=== PATIENT | female | born 1955 | race Caucasian/White ===

== ENCOUNTER 2024-09-16 17:06 | Inpatient (IN) | payer OTHER ==
[~2024-09-16] VITALS: Ht 152.4 cm; Wt 59.0 kg
[2024-09-16] MEDS ORDERED: RINGERS SOLUTION,LACTATED 1,000 ML IV SCH (17:45)
[2024-09-16] MEDS ORDERED: ACETAMINOPHEN 325 MG TABLET PO PRN (17:45)
[2024-09-16 18:06] LABS: PH,URINE 5.5 (5.0-8.0); URINE APPEARANCE Clear; URINE BILIRRUBIN Negative (NEGATIVE); URINE BLOOD Trace; URINE COLOR Yellow; URINE GLUCOSE Negative (NEGATIVE); URINE LEUKOCYTE Trace; URINE NITRATE Negative; URINE PROTEIN Trace (NEGATIVE)
[2024-09-16 18:08] LABS: HEMATOCRIT 28.2 % (36.0-45.00); HEMOGLOBIN 9.4 g/dL (12.0-15.00); MEAN CELL VOLUME 86.4 fL (80.00-100.00); MEAN CORPUSCULAR HEMOGLOBIN 28.8 pg (27.00-32.0); MEAN CORPUSCULAR HGB CONC 33.3 g/dl (32.0-36.0); PLATELET COUNT 559 K/uL (150-450); RED BLOOD COUNT 3.26 M/uL (4.00-6.00); RED CELL DISTRIBUTION WIDTH 20.8 % (11.5-14.5)
[2024-09-16 18:09] LABS: URINE BACTERIA 7.3 uL (0.0-1933); URINE EPITHELIAL CELLS 9.9 uL (0.0-38.8); URINE WBC 4.7 uL (0.0-23.2)
[2024-09-16 18:18] LABS: URINE CAST 0.29 uL (0.0-1.40); URINE KETONE 40 (NEGATIVE)
[2024-09-16 18:22] LABS: ERYTHROCYTE SEDIMENTATION RATE 66 mm/hr
[2024-09-16] MEDS ORDERED: VITAMIN B COMPLEX/LYSINE 15 ML BLIST.PACK PO SCH (18:26)
[2024-09-16] MEDS ORDERED: LACTOBACILLUS ACIDOPHILUS 1 CAP CAP PO SCH (18:27)
[2024-09-16] MEDS ORDERED: METRONIDAZOLE/SODIUM CHLORIDE 500 MG/100 ML PIGGYBACK IV SCH (18:27)
[2024-09-16 18:28] LABS: INR 1.25; PARTIAL THROMBOPLASTIN TIME 30.2 SECONDS (22.0-34.0); PROTHROMBIN TIME 13.4 SECONDS (9.0-11.5)
[2024-09-16 18:37] LABS: ALBUMIN 2.6 gm/dL (3.4-5.0); BILIRUBIN TOTAL 0.75 mg/dL (0.3-1.2); CALCIUM 9.6 mg/dL (8.5-10.1); CREATININE SERUM 0.43 mg/dL (0.55-1.02); GFR 145.16; MAGNESIUM 2.1 mg/dL (1.8-2.4); PHOSPHOROUS 3.3 mg/dL (2.5-4.9); POTASSIUM 4.33 mEq/L (3.5-5.1); TOTAL PROTEIN 6.6 gm/dL (6.4-8.2)
[2024-09-16 18:57] LABS: C-REACTIVE PROTEIN 26.5 MG/DL (0.00-0.29)
[2024-09-16] MEDS ORDERED: CIPROFLOXACIN IN 5 % DEXTROSE 400 MG/200 ML PIGGYBAG IV SCH (21:00)
[2024-09-16 22:31] VITALS: BP 145/74
[2024-09-17 01:27] VITALS: BP 133/64; O2SAT 96
[2024-09-17 06:04] VITALS: BP 124/57; O2SAT 97
[2024-09-17 08:25] VITALS: BP 115/55; O2SAT 95
[2024-09-17] MEDS ORDERED: MULTIVIT INFUSN,ADULT 4,VIT K 10 ML VIAL IV SCH (12:46)
[2024-09-17 17:52] VITALS: BP 157/67
[2024-09-18 01:54] VITALS: BP 112/60; O2SAT 98
[2024-09-18 05:03] VITALS: BP 125/66; O2SAT 98
[2024-09-18 08:28] VITALS: BP 117/66; O2SAT 95
[2024-09-18] MEDS ORDERED: PANTOPRAZOLE SODIUM 40 MG TABLET.DR PO NR (16:30)
[2024-09-18] MEDS ORDERED: HYOSCYAMINE SULFATE 0.125 MG TAB.SUBL SL SCH (17:00)
[2024-09-18 17:56] VITALS: BP 119/67
[2024-09-19 01:47] VITALS: BP 123/63; O2SAT 98
[2024-09-19 05:41] VITALS: BP 146/73; O2SAT 97
[2024-09-19 07:04] LABS: CALCIUM 9.5 mg/dL (8.5-10.1); CREATININE SERUM 0.39 mg/dL (0.55-1.02); GFR 162.47; POTASSIUM 4.14 mEq/L (3.5-5.1)
[2024-09-19 07:16] LABS: MEAN CELL VOLUME 87.9 fL (80.00-100.00); MEAN CORPUSCULAR HEMOGLOBIN 30.4 pg (27.00-32.0); MEAN CORPUSCULAR HGB CONC 34.6 g/dl (32.0-36.0); RED BLOOD COUNT 2.96 M/uL (4.00-6.00); RED CELL DISTRIBUTION WIDTH 20.8 % (11.5-14.5)
[2024-09-19 07:22] LABS: PLATELET COUNT 456 K/uL (150-450)
[2024-09-19 08:57] VITALS: BP 125/65
[2024-09-19] MEDS ORDERED: PANTOPRAZOLE SODIUM 40 MG TABLET.DR PO SCH (09:00)
[2024-09-19 18:22] VITALS: BP 82/57
[2024-09-20 01:18] VITALS: BP 114/59
[2024-09-20 09:02] VITALS: BP 126/66
[2024-09-20] MEDS ORDERED: PEG3350/SOD SULF,BICARB,CL/KCL 4,000 ML GALLON PO NR (10:45)
[2024-09-20] MEDS ORDERED: BISACODYL 5 MG TABLET.EC PO SCH (16:00)
[2024-09-20 17:00] VITALS: BP 140/70
[2024-09-21 00:50] VITALS: BP 146/72
[2024-09-21 09:03] VITALS: BP 149/70
[2024-09-21] MEDS ORDERED: MIDAZOLAM HCL 2 MG/2 ML VIAL IV ONE (10:00)
[2024-09-21] MEDS ORDERED: DIPHENHYDRAMINE HCL 50 MG/ML VIAL 1ML IV NR (10:00)
[2024-09-21] MEDS ORDERED: fentaNYL CITRATE 50 MCG/ML AMPUL IV PUSH ONE (10:00)
[2024-09-21 18:03] VITALS: BP 147/69
[2024-09-21] MEDS ORDERED: SIMETHICONE 125 MG CAPSULE PO SCH (21:12)
[2024-09-22 01:25] VITALS: BP 152/75
[2024-09-22 08:19] VITALS: BP 152/73
[2024-09-22] MEDS ORDERED: SIMETHICONE125 M1 PO (13:27)
[2024-09-22] MEDS ORDERED: INTESTINEX680 M1 PO (13:27)
[2024-09-22] MEDS ORDERED: PANTOPRAZOLE SO40 MG PO (13:27)
[2024-09-22] MEDS ORDERED: HYOSCYAMINE0.125 M1 SL (13:27)
== END 2024-09-22 13:44 | disposition home or self-care (01) | DRG 386 ==
LOC: MEDI 17:06
PROVIDERS: ADMIT Internal Medicine Hematology & Oncology; ATTEND Internal Medicine Hematology & Oncology
PROC: 0DBP8ZX Excision of Rectum, Via Natural or Artificial Opening Endoscopic, Diagnostic (ICD-10-PCS; principal; 2024-09-16)
PROC: 0DBN8ZX Excision of Sigmoid Colon, Via Natural or Artificial Opening Endoscopic, Diagnostic (ICD-10-PCS; 2024-09-16)
DX: K51.50 Left sided colitis without complications (principal); C90.10 Plasma cell leukemia not having achieved remission; D50.0 Iron deficiency anemia secondary to blood loss (chronic); K52.9 Noninfective gastroenteritis and colitis, unspecified; K64.2 Third degree hemorrhoids
CPT/HCPCS: 240

== ENCOUNTER 2024-10-28 07:25 | Inpatient (IN) | payer OTHER ==
[~2024-10-28] VITALS: Ht 152.4 cm; Wt 56.7 kg
[~2024-10-28 07:25] MED LIST: HYOSCYAMINE0.125 M1 SL; INTESTINEX680 M1 PO; PANTOPRAZOLE SO40 MG PO; SIMETHICONE125 M1 PO
[2024-10-28 08:53] LABS: HEMATOCRIT 24.9 % (36.0-45.00); MEAN CELL VOLUME 85.8 fL (80.00-100.00); MEAN CORPUSCULAR HGB CONC 32.8 g/dl (32.0-36.0); PLATELET COUNT 607 K/uL (150-450); RED CELL DISTRIBUTION WIDTH 21.5 % (11.5-14.5)
[2024-10-28 08:54] LABS: HEMOGLOBIN 8.2 g/dL (12.0-15.00); MEAN CORPUSCULAR HEMOGLOBIN 28.2 pg (27.00-32.0)
[2024-10-28 09:10] VITALS: BP 130/54; O2SAT 96
[2024-10-28 09:17] LABS: INR 1.09; PARTIAL THROMBOPLASTIN TIME 29.4 SECONDS (22.0-34.0); PROTHROMBIN TIME 11.8 SECONDS (9.0-11.5)
[2024-10-28] MEDS ORDERED: ACETAMINOPHEN 325 MG TABLET PO PRN (11:00)
[2024-10-28] MEDS ORDERED: RINGERS SOLUTION,LACTATED 1,000 ML IV SCH (11:00)
[2024-10-28] MEDS ORDERED: FUROsemide 20 MG/2 ML VIAL IV PRN (11:00)
[2024-10-28] MEDS ORDERED: PANTOPRAZOLE SODIUM 40 MG/VIAL VIAL IV PUSH STA (11:01)
[2024-10-28] MEDS ORDERED: OCTREOTIDE ACETATE 100MCG/ML (0.1MG/ML) AMPUL SUBCUTANEO STA (11:01)
[2024-10-28 11:06] LABS: BILIRUBIN TOTAL 1.05 mg/dL (0.3-1.2); CALCIUM 9.1 mg/dL (8.5-10.1); CREATININE SERUM 0.41 mg/dL (0.55-1.02); GFR 153.36; GLOBULINA 3.9 G/DL (2.4-3.5); POTASSIUM 3.69 mEq/L (3.5-5.1); TOTAL PROTEIN 5.9 gm/dL (6.4-8.2)
[2024-10-28] MEDS ORDERED: VITAMIN B COMPLEX 1 EACH PO NR (12:00)
[2024-10-28] MEDS ORDERED: MULTIVIT INFUSN,ADULT 4,VIT K 10 ML VIAL IV NR (12:00)
[2024-10-28 16:00] VITALS: BP 135/63; O2SAT 95
[2024-10-28] MEDS ORDERED: OCTREOTIDE ACETATE 100MCG/ML (0.1MG/ML) AMPUL SUBCUTANEO SCH (17:00)
[2024-10-28] MEDS ORDERED: CLONAZEPAM 1 MG TABLET PO SCH (21:00)
[2024-10-29 02:02] VITALS: BP 136/77; O2SAT 98
[2024-10-29] MEDS ORDERED: PANTOPRAZOLE SODIUM 40 MG/VIAL VIAL IV PUSH SCH (09:00)
[2024-10-29] MEDS ORDERED: MULTIVIT INFUSN,ADULT 4,VIT K 10 ML VIAL IV SCH (09:00)
[2024-10-29] MEDS ORDERED: VITAMIN B COMPLEX 1 EACH PO SCH (09:00)
[2024-10-29 09:26] VITALS: BP 131/65; O2SAT 95
[2024-10-29] MEDS ORDERED: DICYCLOMINE HCL 20 MG TABLET PO SCH (14:11)
[2024-10-29] MEDS ORDERED: SUCRALFATE 1 G TABLET PO SCH (14:12)
[2024-10-29 16:00] VITALS: BP 149/73; O2SAT 95
[2024-10-29 16:20] LABS: BASO % 0.2 % (0.1-1.2); HEMATOCRIT 32.8 % (34.1-44.9); HEMOGLOBIN 10.7 g/dL (11.2-15.7); LYMPH # 1.53 (1.18-3.74); MEAN CORPUSCULAR HEMOGLOBIN 28.5 pg (25.6-32.2); MONO # 0.63 (0.24-0.82); MONO % 9.9 % (4.7-12.5); NEUT # 4.18 (1.56-6.13); NEUT % 65.4 % (34.0-71.1); PLATELET COUNT 468 K/uL (163-369); RED BLOOD COUNT 3.75 M/uL (3.93-5.22)
[2024-10-29] MEDS ORDERED: MESALAMINE 400 MG CAP.DRTAB. PO SCH (17:00)
[2024-10-29] MEDS ORDERED: MESALAMINE 1,000 MG SUPP.RECT RECTAL SCH (21:00)
[2024-10-30 01:13] VITALS: BP 128/79; O2SAT 100
[2024-10-30 09:38] VITALS: BP 126/64; O2SAT 95
[2024-10-30] MEDS ORDERED: ACETAMINOPHEN 325 MG TABLET PO SCH (17:00)
[2024-10-31 00:55] VITALS: BP 134/80; O2SAT 100
[2024-10-31 08:35] VITALS: BP 142/65; O2SAT 97
[2024-10-31 17:25] VITALS: BP 149/65; O2SAT 95
[2024-10-31] MEDS ORDERED: KETOROLAC TROMETHAMINE 30 MG VIAL IV SCH (20:00)
[2024-10-31] MEDS ORDERED: CHOLESTYRAMINE/ASPARTAME LIGHT 4 G/PKT PACKET PO SCH (21:00)
[2024-11-01 00:43] VITALS: BP 131/66; O2SAT 96
[2024-11-01 08:00] VITALS: BP 158/65; O2SAT 96
[2024-11-01] MEDS ORDERED: OCTREOTIDE ACETATE 100MCG/ML (0.1MG/ML) AMPUL SUBCUTANEO SCH (09:00)
[2024-11-01 16:00] VITALS: BP 141/67; O2SAT 97
[2024-11-02 01:39] VITALS: BP 140/68; O2SAT 98
[2024-11-02 07:39] LABS: BASO % 0.7 % (0.1-1.2); EOS # 0.01 (0.04-0.54); EOS % 0.1 % (0.7-7.0); HEMATOCRIT 31.3 % (34.1-44.9); HEMOGLOBIN 9.8 g/dL (11.2-15.7); LYMPH # 1.29 (1.18-3.74); LYMPH % 18.6 % (19.3-53.1); MEAN CORPUSCULAR HEMOGLOBIN 28.6 pg (25.6-32.2); MONO # 0.62 (0.24-0.82); NEUT # 4.91 (1.56-6.13); PLATELET COUNT 373 K/uL (163-369); RED BLOOD COUNT 3.43 M/uL (3.93-5.22); RED CELL DISTRIBUTION WIDTH 19.1 % (11.6-14.4)
[2024-11-02 08:00] VITALS: BP 155/80; O2SAT 95
[2024-11-02 08:19] LABS: ALBUMIN 1.5 gm/dL (3.4-5.0); BILIRUBIN TOTAL 0.72 mg/dL (0.3-1.2); CALCIUM 8.1 mg/dL (8.5-10.1); CREATININE SERUM 0.25 mg/dL (0.55-1.02); GFR 271.43; GLOBULINA 3.5 G/DL (2.4-3.5); POTASSIUM 3.38 mEq/L (3.5-5.1)
[2024-11-02] MEDS ORDERED: POTASSIUM CHLORIDE 20MEQ/100ML H2O PB IV NR (09:15)
[2024-11-02 12:40] LABS: URINE APPEARANCE Clear; URINE BILIRRUBIN Negative (NEGATIVE); URINE BLOOD Negative; URINE COLOR Dark Yellow; URINE GLUCOSE Negative (NEGATIVE); URINE KETONE Trace (NEGATIVE); URINE LEUKOCYTE Negative; URINE NITRATE Negative; URINE PROTEIN Trace (NEGATIVE)
[2024-11-02 12:42] LABS: URINE BACTERIA 331.7 uL (0.0-1933); URINE EPITHELIAL CELLS 53.6 uL (0.0-38.8); URINE RBC 17.8 uL (0.0-20.8)
[2024-11-02 13:19] LABS: URINE CAST 0.29 uL (0.0-1.40)
[2024-11-02 13:20] LABS: URINE CRYSTALS FEW /HPF
[2024-11-02 16:00] VITALS: BP 123/70; O2SAT 96
[2024-11-03 01:21] VITALS: BP 93/57; O2SAT 98
[2024-11-03 09:34] VITALS: BP 108/69; O2SAT 98
[2024-11-03 09:36] VITALS: BP 96/56; O2SAT 88
[2024-11-03 09:53] LABS: BASO % 0.5 % (0.1-1.2); HEMATOCRIT 35.3 % (34.1-44.9); HEMOGLOBIN 10.9 g/dL (11.2-15.7); LYMPH # 0.62 (1.18-3.74); LYMPH % 14.4 % (19.3-53.1); MEAN CORPUSCULAR HEMOGLOBIN 28.2 pg (25.6-32.2); MONO # 0.26 (0.24-0.82); NEUT # 3.37 (1.56-6.13); NEUT % 78.2 % (34.0-71.1); PLATELET COUNT 407 K/uL (163-369); RED BLOOD COUNT 3.86 M/uL (3.93-5.22); RED CELL DISTRIBUTION WIDTH 18.8 % (11.6-14.4)
[2024-11-03 16:35] VITALS: BP 107/65; O2SAT 93
[2024-11-03] MEDS ORDERED: ENOXAPARIN SODIUM 60 MG/0.6 ML SYRINGE SUBCUTANEO SCH (21:00)
[2024-11-03 22:21] LABS: ABG PH 7.478 (7.35-7.45); ABG PO2 66.2 mmHg (80-100); ABG pCO2 32.3 mmHg (35-45); BASE EXCESS 0.7 mmol/l; BICARBONATE 23.4 mmol/l (23-25); SaO2 94.3 %; Tco2 24.4 mmol/l
[2024-11-03 22:32] LABS: o2 21 %
[2024-11-03 22:33] LABS: allen test SATISFACTORY; mode ROOM AIR; puncture site RADIAL RIGHT
[2024-11-04 01:23] VITALS: BP 90/56; O2SAT 96
[2024-11-04 14:16] VITALS: BP 109/52; O2SAT 95
[2024-11-04] MEDS ORDERED: METRONIDAZOLE/SODIUM CHLORIDE 100 ML IV SCH (14:17)
[2024-11-04 15:13] VITALS: BP 97/45; O2SAT 95
[2024-11-04] MEDS ORDERED: fentaNYL CITRATE 50 MCG/ML AMPUL IV PUSH STA (16:49)
[2024-11-04] MEDS ORDERED: CIPROFLOXACIN IN 5 % DEXTROSE 200 ML IV SCH (17:00)
[2024-11-04 20:06] VITALS: BP 112/53; O2SAT 100
[2024-11-05] VITALS (9 sets, daily range): BP systolic 101–152; BP diastolic 51–63; O2SAT 98–100
[2024-11-05 16:17] LABS: ABG pCO2 33.5 mmHg (35-45)
[2024-11-05 16:18] LABS: BASE EXCESS 1.5 mmol/l; BICARBONATE 24.4 mmol/l (23-25); SaO2 93.7 %; Tco2 25.4 mmol/l; allen test SATISFACTORY; mode VENTURY MASK; o2 50 %; puncture site RADIAL RIGHT
[2024-11-05 16:19] LABS: ABG PO2 63.5 mmHg (80-100)
[2024-11-05 16:32] LABS: BASO % 0.2 % (0.1-1.2); HEMATOCRIT 34.1 % (34.1-44.9); HEMOGLOBIN 10.9 g/dL (11.2-15.7); LYMPH # 0.39 (1.18-3.74); LYMPH % 4.2 % (19.3-53.1); MEAN CORPUSCULAR HEMOGLOBIN 27.6 pg (25.6-32.2); MONO # 0.22 (0.24-0.82); MONO % 2.4 % (4.7-12.5); NEUT # 8.55 (1.56-6.13); NEUT % 91.8 % (34.0-71.1); PLATELET COUNT 161 K/uL (163-369); RED BLOOD COUNT 3.95 M/uL (3.93-5.22)
[2024-11-05] MEDS ORDERED: AA 4.25%/CAL/LYTES/DEXT 5% 1,000 ML PERIFERAL SCH (17:00)
[2024-11-05 17:04] LABS: INR 2.78
[2024-11-05 17:06] LABS: PROTHROMBIN TIME 28.1 SECONDS (9.0-11.5)
[2024-11-05] MEDS ORDERED: PHYTONADIONE 10 MG/ML AMPUL IV ONE (17:30)
[2024-11-05] MEDS ORDERED: 0.9 % SODIUM CHLORIDE 1,000 ML IV SCH (17:30)
[2024-11-05 17:59] LABS: ALBUMIN 1.2 gm/dL (3.4-5.0); BILIRUBIN TOTAL 0.93 mg/dL (0.3-1.2); CALCIUM 7.5 mg/dL (8.5-10.1); CREATININE SERUM 1.25 mg/dL (0.55-1.02); GFR 42.37; MAGNESIUM 1.7 mg/dL (1.8-2.4); PHOSPHOROUS 3.2 mg/dL (2.5-4.9); POTASSIUM 4.42 mEq/L (3.5-5.1); TOTAL PROTEIN 4.2 gm/dL (6.4-8.2)
[2024-11-05 18:08] LABS: CHOL HDL RATIO 4.9 (0-5.0)
[2024-11-05] MEDS ORDERED: PROPOFOL 100 ML IV SCH ×2 (19:30→19:45)
[2024-11-05] MEDS ORDERED: MIDAZOLAM HCL 2 MG/2 ML VIAL IV ONE (19:30)
[2024-11-05] MEDS ORDERED: DEXTROSE 50 % IN WATER 0.5 G/ML DISP.SYRIN IV PRN (20:30)
[2024-11-05] MEDS ORDERED: INSULIN LISPRO 1,000 UNIT/10 ML UNITS SUBCUTANEO PRN (20:30)
[2024-11-05] MEDS ORDERED: FAMOTIDINE/PF 20 MG/10 ML SYRINGE IV PUSH SCH (21:00)
[2024-11-05] MEDS ORDERED: MEROPENEM 500 MG/VIAL VIAL IV SCH (21:00)
[2024-11-06] VITALS (24 sets, daily range): BP systolic 91–157; BP diastolic 38–80; O2SAT 99–100
[2024-11-06 00:40] LABS: ABG PH 7.423 (7.35-7.45); BASE EXCESS -5.5 mmol/l; BICARBONATE 17.2 mmol/l (23-25); SaO2 96.7 %; allen test SATISFACTORY; mode MECHANI VENTILATOR; o2 100 %; puncture site RADIAL LEFT
[2024-11-06 00:42] LABS: ABG pCO2 26.9 mmHg (35-45)
[2024-11-06] MEDS ORDERED: CHLORHEXIDINE GLUCONATE 15ML BRUSH KIT MM SCH (01:00)
[2024-11-06 07:34] LABS: BASO % 0.2 % (0.1-1.2); EOS # 0.01 (0.04-0.54); HEMATOCRIT 31.6 % (34.1-44.9); HEMOGLOBIN 9.6 g/dL (11.2-15.7); LYMPH # 1.12 (1.18-3.74); LYMPH % 5.1 % (19.3-53.1); MEAN CORPUSCULAR HEMOGLOBIN 28.4 pg (25.6-32.2); MONO # 0.63 (0.24-0.82); MONO % 2.9 % (4.7-12.5); NEUT # 18.94 (1.56-6.13); PLATELET COUNT 168 K/uL (163-369); RED BLOOD COUNT 3.38 M/uL (3.93-5.22); RED CELL DISTRIBUTION WIDTH 19.6 % (11.6-14.4)
[2024-11-06 07:46] LABS: INR 2.05
[2024-11-06] MEDS ORDERED: NOREPINEPHRINE BITARTRATE 4 MG in DEXTROSE 5 % IN WATER 250 ML IV SCH (08:15)
[2024-11-06 08:36] LABS: BILIRUBIN TOTAL 0.8 mg/dL (0.3-1.2); CALCIUM 7.6 mg/dL (8.5-10.1); CREATININE SERUM 1.97 mg/dL (0.55-1.02); GFR 25.06; GLOBULINA 2.6 G/DL (2.4-3.5); POTASSIUM 4.78 mEq/L (3.5-5.1); TOTAL PROTEIN 3.6 gm/dL (6.4-8.2); TSH 1.2 uIU/mL (0.358-3.74)
[2024-11-06 08:48] LABS: PROTHROMBIN TIME 21.2 SECONDS (9.0-11.5)
[2024-11-06 08:49] LABS: PARTIAL THROMBOPLASTIN TIME 95.4 SECONDS (22.0-34.0)
[2024-11-06] MEDS ORDERED: POLYVINYL ALCOHOL 15 ML DROPS OP SCH (09:00)
[2024-11-06] MEDS ORDERED: HYDROCORTISONE SODIUM SUCC/PF 200 MG in 0.9 % SODIUM CHLORIDE 250 ML IV SCH (09:15)
[2024-11-06 09:19] LABS: ABG PH 7.365 (7.35-7.45); ABG PO2 97.1 mmHg (80-100); ABG pCO2 27.5 mmHg (35-45); BASE EXCESS -8.3 mmol/l; BICARBONATE 15.4 mmol/l (23-25); Tco2 16.2 mmol/l
[2024-11-06] MEDS ORDERED: FAMOTIDINE/PF 20 MG/2 ML VIAL IV SCH (10:22)
[2024-11-06] MEDS ORDERED: DEXTROSE 50 % IN WATER 0.5 G/ML VIAL IV PRN (10:30)
[2024-11-06 15:04] LABS: allen test SATISFACTORY; o2 100 %; puncture site RADIAL RIGHT
[2024-11-06 15:05] LABS: mode MECHANI VENTILATOR
[2024-11-06] MEDS ORDERED: MEROPENEM 500 MG/VIAL VIAL IV SCH (21:00)
[2024-11-07] VITALS (7 sets, daily range): BP systolic 132–151; BP diastolic 65–73; O2SAT 97–100
[2024-11-07 00:56] LABS: INR 1.22; PARTIAL THROMBOPLASTIN TIME 34.6 SECONDS (22.0-34.0); PROTHROMBIN TIME 13.1 SECONDS (9.0-11.5)
[2024-11-08 04:10] VITALS: BP 160/82; O2SAT 99
[2024-11-08 07:17] LABS: INR 1.22; PARTIAL THROMBOPLASTIN TIME 29.9 SECONDS (22.0-34.0); PROTHROMBIN TIME 13.1 SECONDS (9.0-11.5)
[2024-11-08 07:35] LABS: ALBUMIN 1.4 gm/dL (3.4-5.0); CALCIUM 7.9 mg/dL (8.5-10.1); CREATININE SERUM 1.44 mg/dL (0.55-1.02); GFR 35.99; GLOBULINA 2.9 G/DL (2.4-3.5); MAGNESIUM 2.7 mg/dL (1.8-2.4); PHOSPHOROUS 7.1 mg/dL (2.5-4.9); TOTAL PROTEIN 4.3 gm/dL (6.4-8.2)
[2024-11-08 07:53] LABS: POTASSIUM 6.91 mEq/L (3.5-5.1)
[2024-11-08 08:08] VITALS: BP 169/74; O2SAT 99
[2024-11-08] MEDS ORDERED: CALCIUM GLUCONATE 100 MG/ML VIAL IV STA (08:24)
[2024-11-08] MEDS ORDERED: INSULIN REGULAR, HUMAN 1,000 UNIT/10 ML UNITS IV STA (08:25)
[2024-11-08] MEDS ORDERED: DEXTROSE 50 % IN WATER 0.5 G/ML VIAL IV STA (08:29)
[2024-11-08] MEDS ORDERED: FAMOTIDINE/PF 20 MG/2 ML VIAL IV SCH (09:00)
[2024-11-08] MEDS ORDERED: SODIUM BICARBONATE 50MEQ/50ML VIAL IV NR (09:00)
[2024-11-08 09:52] LABS: ABG PH 7.479 (7.35-7.45); ABG PO2 171.6 mmHg (80-100); ABG pCO2 30.9 mmHg (35-45); BASE EXCESS 0 mmol/l; BICARBONATE 22.5 mmol/l (23-25); SaO2 99.6 %; Tco2 23.4 mmol/l
[2024-11-08 09:53] LABS: allen test SATISFACTORY; mode MECHANI VENTILATOR; o2 70 %; puncture site RADIAL RIGHT
[2024-11-08 10:28] LABS: RED BLOOD COUNT 2.73 M/uL (3.93-5.22)
[2024-11-08 10:31] LABS: HEMATOCRIT 25.2 % (34.1-44.9); MEAN CORPUSCULAR HEMOGLOBIN 28.2 pg (25.6-32.2); PLATELET COUNT 73 K/uL (163-369); RED CELL DISTRIBUTION WIDTH 19.6 % (11.6-14.4)
[2024-11-08 10:39] LABS: HEMOGLOBIN 7.7 g/dL (11.2-15.7)
[2024-11-08] MEDS ORDERED: FUROsemide 20 MG/2 ML VIAL IV SCH (11:00)
[2024-11-08 12:00] VITALS: BP 159/80; O2SAT 100
[2024-11-08 15:32] LABS: CALCIUM 8.8 mg/dL (8.5-10.1); CREATININE SERUM 1.29 mg/dL (0.55-1.02); GFR 40.86; POTASSIUM 4.9 mEq/L (3.5-5.1)
[2024-11-08 15:55] VITALS: BP 162/79; O2SAT 100
[2024-11-08] MEDS ORDERED: AA 5 % NO.6/DEXTROSE 15 % 2,000 ML CENTRAL SCH (17:00)
[2024-11-08 20:00] VITALS: BP 163/81; O2SAT 100
[2024-11-08] MEDS ORDERED: FAT EMULSIONS 250 ML IV SCH (21:00)
[2024-11-08] MEDS ORDERED: DILTIAZEM HCL 125MG/25ML VIAL IV ONE (22:41)
[2024-11-08] MEDS ORDERED: DILTIAZEM HCL 125 MG in 0.9 % SODIUM CHLORIDE 100 ML IV SCH (23:00)
[2024-11-08 23:37] VITALS: BP 184/84; O2SAT 100
[2024-11-09] VITALS (13 sets, daily range): BP systolic 133–181; BP diastolic 63–81; O2SAT 100
[2024-11-09] MEDS ORDERED: METHYLPREDNISOLONE SOD SUCC 40 MG VIAL IV ONE (02:00)
[2024-11-09] MEDS ORDERED: ENALAPRILAT DIHYDRATE 1.25 MG/ML VIAL IV PRN (02:00)
[2024-11-09 04:29] LABS: URINE APPEARANCE Cloudy; URINE BILIRRUBIN Negative (NEGATIVE); URINE BLOOD Small; URINE COLOR Yellow; URINE KETONE Negative (NEGATIVE); URINE LEUKOCYTE Negative; URINE NITRATE Negative; URINE PROTEIN 30 (NEGATIVE); URINE UROBILINOGEN 0.2 E.U./dl
[2024-11-09 04:31] LABS: BASO % 0.6 % (0.1-1.2); HEMATOCRIT 31.1 % (34.1-44.9); HEMOGLOBIN 10.6 g/dL (11.2-15.7); LYMPH # 0.73 (1.18-3.74); LYMPH % 7.5 % (19.3-53.1); MEAN CORPUSCULAR HEMOGLOBIN 29.9 pg (25.6-32.2); MONO # 0.44 (0.24-0.82); MONO % 4.5 % (4.7-12.5); NEUT % 82.3 % (34.0-71.1); RED BLOOD COUNT 3.55 M/uL (3.93-5.22); RED CELL DISTRIBUTION WIDTH 18.6 % (11.6-14.4)
[2024-11-09 04:33] LABS: URINE BACTERIA 84.4 uL (0.0-1933); URINE CAST 5.44 uL (0.0-1.40); URINE EPITHELIAL CELLS 71.2 uL (0.0-38.8); URINE RBC 48.7 uL (0.0-20.8); URINE WBC 16.9 uL (0.0-23.2)
[2024-11-09 04:36] LABS: PLATELET COUNT 71 K/uL (163-369)
[2024-11-09 05:11] LABS: URINE GLUCOSE 100 MG/DL (NEGATIVE)
[2024-11-09] MEDS ORDERED: PIPERACILLIN/TAZOBACTAM SODIUM 4.5 GM in DEXTROSE 5 % IN WATER 100 ML IV NR (08:00)
[2024-11-09 09:14] LABS: ABG PH 7.423 (7.35-7.45); ABG PO2 154.6 mmHg (80-100); ABG pCO2 36.2 mmHg (35-45); BASE EXCESS -0.8 mmol/l; BICARBONATE 23.1 mmol/l (23-25); SaO2 99.4 %; Tco2 24.2 mmol/l
[2024-11-09 09:33] LABS: allen test NO SATISFACTORY; mode MECHANI VENTILATOR; o2 70 %; puncture site RADIAL RIGHT
[2024-11-09] MEDS ORDERED: hydrALAZINE HCL 20 MG VIAL IV PRN (14:30)
[2024-11-09] MEDS ORDERED: PIPERACILLIN/TAZOBACTAM SODIUM 3.375 GM VIAL IV SCH (17:00)
[2024-11-10] VITALS (15 sets, daily range): BP systolic 120–165; BP diastolic 45–76; O2SAT 100
[2024-11-10] MEDS ORDERED: DILTIAZEM HCL 125MG/25ML VIAL IV ONE (05:19)
[2024-11-10] MEDS ORDERED: DILTIAZEM HCL 125 MG in 0.9 % SODIUM CHLORIDE 100 ML IV SCH (05:30)
[2024-11-10 05:41] LABS: ABG PH 7.364 (7.35-7.45); ABG pCO2 45.3 mmHg (35-45); BASE EXCESS -0.4 mmol/l; BICARBONATE 25.3 mmol/l (23-25); SaO2 98.9 %; Tco2 26.7 mmol/l
[2024-11-10 06:06] LABS: allen test SATISFACTORY; mode MECHANI VENTILATOR; o2 60 %; puncture site RADIAL RIGHT
[2024-11-10] MEDS ORDERED: HYDROCORTISONE SODIUM SUCC/PF 1 MG/ML ML IV SCH (17:00)
[2024-11-10] MEDS ORDERED: AMIODARONE HCL 900 MG in DEXTROSE 5 % IN WATER 500 ML IV SCH (18:15)
[2024-11-11] VITALS (17 sets, daily range): BP systolic 139–184; BP diastolic 49–68; O2SAT 99–100
[2024-11-11] MEDS ORDERED: AMIODARONE HCL 900 MG in DEXTROSE 5 % IN WATER 500 ML IV SCH (00:30)
[2024-11-11 06:41] LABS: BASO % 0.3 % (0.1-1.2); HEMATOCRIT 28.2 % (34.1-44.9); LYMPH # 0.98 (1.18-3.74); LYMPH % 7.5 % (19.3-53.1); MEAN CORPUSCULAR HEMOGLOBIN 28.1 pg (25.6-32.2); MONO # 0.67 (0.24-0.82); MONO % 5.1 % (4.7-12.5); NEUT % 86.1 % (34.0-71.1); RED BLOOD COUNT 3.13 M/uL (3.93-5.22); RED CELL DISTRIBUTION WIDTH 17.8 % (11.6-14.4)
[2024-11-11 06:44] LABS: HEMOGLOBIN 8.8 g/dL (11.2-15.7); PLATELET COUNT 121 K/uL (163-369)
[2024-11-11 07:03] LABS: INR 1.21; PARTIAL THROMBOPLASTIN TIME 25.4 SECONDS (22.0-34.0)
[2024-11-11 07:17] LABS: ALBUMIN 1.4 gm/dL (3.4-5.0); BILIRUBIN TOTAL 1.32 mg/dL (0.3-1.2); CALCIUM 9.2 mg/dL (8.5-10.1); CREATININE SERUM 0.68 mg/dL (0.55-1.02); GFR 85.54; GLOBULINA 3.3 G/DL (2.4-3.5); MAGNESIUM 1.8 mg/dL (1.8-2.4); POTASSIUM 3.42 mEq/L (3.5-5.1); TOTAL PROTEIN 4.7 gm/dL (6.4-8.2)
[2024-11-11 07:31] LABS: PHOSPHOROUS 1.5 mg/dL (2.5-4.9)
[2024-11-11] MEDS ORDERED: MAGNESIUM SULFATE/D5W 100 ML IV NR (09:00)
[2024-11-11] MEDS ORDERED: ENOXAPARIN SODIUM 60 MG/0.6 ML SYRINGE SUBCUTANEO SCH (09:00)
[2024-11-11 09:40] LABS: ABG PH 7.437 (7.35-7.45); ABG PO2 115.9 mmHg (80-100); ABG pCO2 38.1 mmHg (35-45); BASE EXCESS 1.1 mmol/l; BICARBONATE 25.1 mmol/l (23-25); SaO2 98.7 %; Tco2 26.3 mmol/l
[2024-11-11 10:37] LABS: o2 40 %
[2024-11-11 10:38] LABS: allen test NO SATISFACTORY; mode MECHANI VENTILATOR; puncture site RADIAL RIGHT
[2024-11-11] MEDS ORDERED: DIATRIZOATE MEGLUMINE, SODIUM 30 ML BOTTLE PO NR (11:00)
[2024-11-11] MEDS ORDERED: POTASSIUM PHOS,M-BASIC-D-BASIC 18 MM in 0.9 % SODIUM CHLORIDE 250 ML IV NR (11:00)
[2024-11-11] MEDS ORDERED: METHYLPREDNISOLONE SOD SUCC 40 MG VIAL IV PRN (13:45)
[2024-11-11] MEDS ORDERED: DIPHENHYDRAMINE HCL 50 MG/ML VIAL 1ML IV PRN (13:45)
[2024-11-11] MEDS ORDERED: PANTOPRAZOLE SODIUM 40 MG/VIAL VIAL IV SCH (13:52)
[2024-11-11] MEDS ORDERED: AA 5 %/CALCIUM/LYTES/DEXT 20 % 2,000 ML CENTRAL SCH (17:00)
[2024-11-12] VITALS (22 sets, daily range): BP systolic 148–176; BP diastolic 50–67; O2SAT 100
[2024-11-12] MEDS ORDERED: HYDROCORTISONE SODIUM SUCC/PF 50 MG/ML ML IV SCH (09:00)
[2024-11-12 12:14] LABS: ABG PH 7.323 (7.35-7.45); ABG PO2 113.3 mmHg (80-100); ABG pCO2 47.5 mmHg (35-45); BASE EXCESS -2.4 mmol/l; SaO2 97.9 %; Tco2 25.5 mmol/l
[2024-11-12 12:21] LABS: allen test SATISFACTORY; mode MECHANI VENTILATOR; o2 100 %; puncture site RADIAL LEFT
[2024-11-12] MEDS ORDERED: FUROsemide 40 MG/4 ML VIAL IV SCH (13:00)
[2024-11-12 18:49] LABS: BASO % 0.2 % (0.1-1.2); HEMATOCRIT 39.1 % (34.1-44.9); HEMOGLOBIN 12.5 g/dL (11.2-15.7); LYMPH # 0.39 (1.18-3.74); LYMPH % 4.8 % (19.3-53.1); MONO # 0.17 (0.24-0.82); MONO % 2.1 % (4.7-12.5); NEUT # 7.54 (1.56-6.13); NEUT % 92.2 % (34.0-71.1); PLATELET COUNT 158 K/uL (163-369); RED BLOOD COUNT 4.47 M/uL (3.93-5.22); RED CELL DISTRIBUTION WIDTH 17.9 % (11.6-14.4)
[2024-11-12 20:00] LABS: ALBUMIN 1.8 gm/dL (3.4-5.0); BILIRUBIN TOTAL 1.64 mg/dL (0.3-1.2); CREATININE SERUM 1.04 mg/dL (0.55-1.02); GFR 52.39; GLOBULINA 3.6 G/DL (2.4-3.5); MAGNESIUM 2.3 mg/dL (1.8-2.4); PHOSPHOROUS 2.8 mg/dL (2.5-4.9); POTASSIUM 4.06 mEq/L (3.5-5.1); TOTAL PROTEIN 5.4 gm/dL (6.4-8.2)
[2024-11-13] VITALS (23 sets, daily range): BP systolic 141–182; BP diastolic 52–76; O2SAT 100
[2024-11-13] MEDS ORDERED: INSULIN NPH HUMAN ISOPHANE 1,000 UNITS/10 ML UNITS SUBCUTANEO STA (01:12)
[2024-11-13] MEDS ORDERED: INSULIN NPH HUMAN ISOPHANE 1,000 UNITS/10 ML UNITS SUBCUTANEO SCH (09:00)
[2024-11-13 09:14] LABS: ABG PH 7.333 (7.35-7.45); ABG PO2 141.7 mmHg (80-100); ABG pCO2 44.2 mmHg (35-45); SaO2 98.9 %; Tco2 24.3 mmol/l
[2024-11-13 09:32] LABS: allen test SATISFACTORY; mode MECHANI VENTILATOR; o2 40 %; puncture site RADIAL RIGHT
[2024-11-13] MEDS ORDERED: PANTOPRAZOLE SODIUM 80 MG in 0.9 % SODIUM CHLORIDE 100 ML IV SCH (10:30)
[2024-11-13 10:42] LABS: BASO % 0.5 % (0.1-1.2); HEMOGLOBIN 11.8 g/dL (11.2-15.7); LYMPH # 0.42 (1.18-3.74); LYMPH % 5.2 % (19.3-53.1); MEAN CORPUSCULAR HEMOGLOBIN 28.6 pg (25.6-32.2); MONO # 0.52 (0.24-0.82); MONO % 6.5 % (4.7-12.5); NEUT % 87.2 % (34.0-71.1); PLATELET COUNT 156 K/uL (163-369); RED BLOOD COUNT 4.12 M/uL (3.93-5.22); RED CELL DISTRIBUTION WIDTH 18.2 % (11.6-14.4)
[2024-11-13] MEDS ORDERED: DIGOXIN 0.25 MG/ML AMPUL IV NR (11:00)
[2024-11-13 11:20] LABS: INR 1.12; PARTIAL THROMBOPLASTIN TIME 32.3 SECONDS (22.0-34.0); PROTHROMBIN TIME 12.1 SECONDS (9.0-11.5)
[2024-11-13] MEDS ORDERED: OCTREOTIDE ACETATE 1,250 MCG in 0.9 % SODIUM CHLORIDE 250 ML IV SCH (12:00)
[2024-11-13] MEDS ORDERED: FUROsemide 40 MG/4 ML VIAL IV NR (14:00)
[2024-11-14] VITALS (22 sets, daily range): BP systolic 150–190; BP diastolic 47–64; O2SAT 100
[2024-11-14 07:48] LABS: BASO % 0.5 % (0.1-1.2); HEMATOCRIT 35.6 % (34.1-44.9); HEMOGLOBIN 11.4 g/dL (11.2-15.7); LYMPH # 0.33 (1.18-3.74); LYMPH % 5.8 % (19.3-53.1); MEAN CORPUSCULAR HEMOGLOBIN 28.9 pg (25.6-32.2); MONO # 0.33 (0.24-0.82); MONO % 5.8 % (4.7-12.5); NEUT # 4.93 (1.56-6.13); NEUT % 87.4 % (34.0-71.1); PLATELET COUNT 154 K/uL (163-369); RED BLOOD COUNT 3.94 M/uL (3.93-5.22); RED CELL DISTRIBUTION WIDTH 18.1 % (11.6-14.4)
[2024-11-14 07:53] LABS: INR 1.06; PARTIAL THROMBOPLASTIN TIME 27.6 SECONDS (22.0-34.0); PROTHROMBIN TIME 11.5 SECONDS (9.0-11.5)
[2024-11-14 08:08] LABS: ALBUMIN 1.5 gm/dL (3.4-5.0); BILIRUBIN TOTAL 1.95 mg/dL (0.3-1.2); CALCIUM 9.8 mg/dL (8.5-10.1); CREATININE SERUM 1.12 mg/dL (0.55-1.02); GFR 48.09; GLOBULINA 2.9 G/DL (2.4-3.5); MAGNESIUM 2.3 mg/dL (1.8-2.4); PHOSPHOROUS 3.3 mg/dL (2.5-4.9); POTASSIUM 4.64 mEq/L (3.5-5.1); TOTAL PROTEIN 4.4 gm/dL (6.4-8.2)
[2024-11-14 08:10] LABS: ALBUMIN 1.5 gm/dL (3.4-5.0); BILIRUBIN TOTAL 1.99 mg/dL (0.3-1.2); BILIRUBIN,CONJUGATED 1.26 mg/dL (0.0-0.2); BILIRUBIN,UNCONJUGATED 0.73 mg/dL (0.0-0.6); CHOL HDL RATIO 5.7 (0-5.0); TOTAL PROTEIN 4.4 gm/dL (6.4-8.2)
[2024-11-14 09:55] LABS: UREA CLEARANCE 8.3 ML/MIN
[2024-11-14 09:56] LABS: ABG pCO2 44.8 mmHg (35-45); BICARBONATE 24.7 mmol/l (23-25); SaO2 99.2 %; Tco2 26.1 mmol/l; allen test SATISFACTORY; mode MECHANI VENTILATOR; o2 40 %; puncture site RADIAL RIGHT
[2024-11-14] MEDS ORDERED: SODIUM CL 0.9% 250 ML IV.SOLN ONE (11:37)
[2024-11-14] MEDS ORDERED: ALBUMIN HUMAN 0.25GM/ML (50ML) VIAL IV SCH (21:00)
[2024-11-14] MEDS ORDERED: ALBUMIN HUMAN 5% 0.05GM/ML (250ML) VIAL IV SCH (21:00)
[2024-11-14] MEDS ORDERED: FUROsemide 20 MG/2 ML VIAL IV SCH (21:00)
[2024-11-15] VITALS (23 sets, daily range): BP systolic 108–180; BP diastolic 45–53; O2SAT 77–100
[2024-11-15 06:52] LABS: BASO % 0.3 % (0.1-1.2); EOS # 0.01 (0.04-0.54); EOS % 0.2 % (0.7-7.0); HEMATOCRIT 34.8 % (34.1-44.9); HEMOGLOBIN 10.9 g/dL (11.2-15.7); LYMPH % 6.8 % (19.3-53.1); MEAN CORPUSCULAR HEMOGLOBIN 28.4 pg (25.6-32.2); MONO # 0.27 (0.24-0.82); MONO % 4.6 % (4.7-12.5); NEUT # 5.05 (1.56-6.13); NEUT % 85.2 % (34.0-71.1); PLATELET COUNT 149 K/uL (163-369); RED BLOOD COUNT 3.84 M/uL (3.93-5.22); RED CELL DISTRIBUTION WIDTH 18.5 % (11.6-14.4)
[2024-11-15 07:24] LABS: ALBUMIN 1.4 gm/dL (3.4-5.0); BILIRUBIN TOTAL 2.29 mg/dL (0.3-1.2); CREATININE SERUM 1.44 mg/dL (0.55-1.02); GFR 35.99; GLOBULINA 2.7 G/DL (2.4-3.5); MAGNESIUM 2.3 mg/dL (1.8-2.4); PHOSPHOROUS 4.2 mg/dL (2.5-4.9); POTASSIUM 5.6 mEq/L (3.5-5.1); TOTAL PROTEIN 4.1 gm/dL (6.4-8.2)
[2024-11-15] MEDS ORDERED: hydrALAZINE HCL 20 MG VIAL IV STA (08:21)
[2024-11-15] MEDS ORDERED: CLEVIDIPINE BUTYRATE 100 ML IV SCH (08:45)
[2024-11-15 09:10] LABS: BASE EXCESS -3.3 mmol/l; BICARBONATE 21.5 mmol/l (23-25); SaO2 99.3 %; Tco2 22.7 mmol/l; allen test SATISFACTORY; mode MECHANI VENTILATOR; o2 40 %; puncture site RADIAL LEFT
[2024-11-15] MEDS ORDERED: ALBUMIN HUMAN 100 ML VIAL IV SCH (09:32)
[2024-11-15] MEDS ORDERED: FUROsemide 20 MG/2 ML VIAL IV SCH (21:00)
[2024-11-15] MEDS ORDERED: MEROPENEM 500 MG/VIAL VIAL IV SCH (21:00)
[2024-11-16] VITALS (19 sets, daily range): BP systolic 114–153; BP diastolic 35–78; O2SAT 97–100
[2024-11-16 08:34] LABS: ABG PO2 95.3 mmHg (80-100); ABG pCO2 42.4 mmHg (35-45); BICARBONATE 23.4 mmol/l (23-25); Tco2 24.7 mmol/l
[2024-11-16 08:46] LABS: allen test NO SATISFACTORY; mode MECHANI VENTILATOR; o2 40 %; puncture site RADIAL RIGHT
[2024-11-16] MEDS ORDERED: PIPERACILLIN/TAZOBACTAM SODIUM 3.375 GM in 0.9 % SODIUM CHLORIDE 100 ML IV SCH (17:00)
[2024-11-16 22:08] LABS: ABG PH 7.291 (7.35-7.45); ABG PO2 99.3 mmHg (80-100); BASE EXCESS -1.8 mmol/l; BICARBONATE 25.8 mmol/l (23-25); SaO2 96.7 %; Tco2 27.4 mmol/l
[2024-11-16 22:09] LABS: allen test SATISFACTORY; mode MECHANI VENTILATOR; o2 40 %; puncture site RADIAL RIGHT
[2024-11-16 22:11] LABS: ABG pCO2 54.7 mmHg (35-45)
[2024-11-17] VITALS (21 sets, daily range): BP systolic 74–159; BP diastolic 41–87; O2SAT 93–100
[2024-11-17 06:49] LABS: ALBUMIN 2.5 gm/dL (3.4-5.0); BILIRUBIN TOTAL 2.78 mg/dL (0.3-1.2); CALCIUM 10.6 mg/dL (8.5-10.1); CREATININE SERUM 1.84 mg/dL (0.55-1.02); GFR 27.12; GLOBULINA 2.3 G/DL (2.4-3.5); MAGNESIUM 2.5 mg/dL (1.8-2.4); PHOSPHOROUS 5.4 mg/dL (2.5-4.9); TOTAL PROTEIN 4.8 gm/dL (6.4-8.2)
[2024-11-17 06:52] LABS: BASO % 0.1 % (0.1-1.2); EOS # 0.04 (0.04-0.54); EOS % 0.5 % (0.7-7.0); HEMATOCRIT 30.9 % (34.1-44.9); HEMOGLOBIN 9.6 g/dL (11.2-15.7); LYMPH % 6.2 % (19.3-53.1); MEAN CORPUSCULAR HEMOGLOBIN 28.6 pg (25.6-32.2); MONO # 0.17 (0.24-0.82); MONO % 2.1 % (4.7-12.5); NEUT % 80.2 % (34.0-71.1); PLATELET COUNT 155 K/uL (163-369); RED BLOOD COUNT 3.36 M/uL (3.93-5.22); RED CELL DISTRIBUTION WIDTH 18.6 % (11.6-14.4)
[2024-11-17 07:05] LABS: POTASSIUM 6.34 mEq/L (3.5-5.1)
[2024-11-17] MEDS ORDERED: EPOETIN ALFA-EPBX 10,000 UNIT/ML VIAL (Retacrit) SUBCUTANEO SCH (09:00)
[2024-11-17] MEDS ORDERED: ALBUMIN HUMAN 100 ML VIAL IV SCH (09:00)
[2024-11-17 09:03] LABS: ABG PH 7.323 (7.35-7.45); ABG PO2 107.8 mmHg (80-100); ABG pCO2 41.6 mmHg (35-45); BASE EXCESS -4.7 mmol/l; BICARBONATE 21.1 mmol/l (23-25); SaO2 97.5 %; Tco2 22.4 mmol/l
[2024-11-17] MEDS ORDERED: AMIODARONE HCL 450 MG in DEXTROSE 5 % IN WATER 250 ML IV SCH (09:15)
[2024-11-17 10:16] LABS: allen test SATISFACTORY; mode MECHANI VENTILATOR; o2 40 %; puncture site RADIAL LEFT
[2024-11-17] MEDS ORDERED: FLUCONAZOLE IN NACL,ISO-OSM 400 MG/200 ML PIGGYBAG IV NR (11:00)
[2024-11-17] MEDS ORDERED: HEPARIN SODIUM,PORCINE 5,000 UNITS/ML VIAL ONE (13:54)
[2024-11-17] MEDS ORDERED: PANTOPRAZOLE SODIUM 80 MG in 0.9 % SODIUM CHLORIDE 100 ML IV SCH (14:45)
[2024-11-17] MEDS ORDERED: NOREPINEPHRINE BITARTRATE 1 MG/ML AMPUL IV ONE (17:34)
[2024-11-17] MEDS ORDERED: NOREPINEPHRINE BITARTRATE 4 MG in DEXTROSE 5 % IN WATER 250 ML IV SCH (18:00)
[2024-11-17] MEDS ORDERED: HEPARIN SODIUM,PORCINE 5,000 UNITS/ML VIAL IV NR (19:20)
[2024-11-17] MEDS ORDERED: LORazepam 2 MG/ML VIAL ONE (20:29)
[2024-11-17] MEDS ORDERED: LORazepam 2 MG/ML VIAL IV PUSH STA ×2 (20:40→21:12)
[2024-11-17] MEDS ORDERED: LevETIRAcetam 10 MG/ML REDILUIDO IV STA (20:43)
[2024-11-17] MEDS ORDERED: DEXAMETHASONE SODIUM PHOSPHATE 4 MG/ML VIAL IV STA (20:56)
[2024-11-17] MEDS ORDERED: LevETIRAcetam 500 MG/5 ML VIAL IV SCH (21:00)
[2024-11-17] MEDS ORDERED: PIPERACILLIN/TAZOBACTAM SODIUM 4.5 GM in DEXTROSE 5 % IN WATER 100 ML IV SCH (21:00)
[2024-11-17 21:26] LABS: CALCIUM 9.5 mg/dL (8.5-10.1); CREATININE SERUM 1.36 mg/dL (0.55-1.02); GFR 38.44; MAGNESIUM 2.2 mg/dL (1.8-2.4); PHOSPHOROUS 4.6 mg/dL (2.5-4.9); POTASSIUM 4.82 mEq/L (3.5-5.1)
[2024-11-17] MEDS ORDERED: LORazepam 2 MG/ML VIAL IV PRN (21:45)
[2024-11-18] VITALS (24 sets, daily range): BP systolic 113–165; BP diastolic 43–80; O2SAT 95–100
[2024-11-18 07:27] LABS: BASO % 0.1 % (0.1-1.2); EOS # 0.01 (0.04-0.54); LYMPH % 2.9 % (19.3-53.1); MEAN CORPUSCULAR HEMOGLOBIN 28.5 pg (25.6-32.2); MONO # 0.28 (0.24-0.82); MONO % 1.4 % (4.7-12.5); NEUT # 16.29 (1.56-6.13); NEUT % 78.6 % (34.0-71.1); PLATELET COUNT 158 K/uL (163-369); RED BLOOD COUNT 2.95 M/uL (3.93-5.22); RED CELL DISTRIBUTION WIDTH 18.7 % (11.6-14.4)
[2024-11-18 08:08] LABS: ALBUMIN 2.4 gm/dL (3.4-5.0); BILIRUBIN TOTAL 2.81 mg/dL (0.3-1.2); CALCIUM 9.7 mg/dL (8.5-10.1); CREATININE SERUM 1.7 mg/dL (0.55-1.02); GFR 29.71; GLOBULINA 2.4 G/DL (2.4-3.5); MAGNESIUM 2.6 mg/dL (1.8-2.4); PHOSPHOROUS 6.3 mg/dL (2.5-4.9); TOTAL PROTEIN 4.8 gm/dL (6.4-8.2)
[2024-11-18 08:21] LABS: POTASSIUM 6.19 mEq/L (3.5-5.1)
[2024-11-18 08:30] LABS: HEMOGLOBIN 8.4 g/dL (11.2-15.7)
[2024-11-18] MEDS ORDERED: MIDAZOLAM HCL 50 MG in 0.9 % SODIUM CHLORIDE 50 ML IV SCH (08:30)
[2024-11-18 08:43] LABS: ABG PH 7.217 (7.35-7.45); ABG PO2 115.1 mmHg (80-100); BASE EXCESS -8.7 mmol/l; BICARBONATE 19.1 mmol/l (23-25); SaO2 97.1 %; Tco2 20.6 mmol/l
[2024-11-18 08:44] LABS: allen test NO SATISFACTORY; mode MECHANI VENTILATOR; o2 40 %; puncture site RADIAL RIGHT
[2024-11-18] MEDS ORDERED: FLUCONAZOLE 200 MG TABLET PO SCH (09:00)
[2024-11-18 09:43] LABS: ABG PH 7.232 (7.35-7.45); ABG PO2 136.7 mmHg (80-100); ABG pCO2 48.9 mmHg (35-45); SaO2 98.3 %
[2024-11-18 09:44] LABS: BASE EXCESS -7.6 mmol/l; BICARBONATE 20.1 mmol/l (23-25); Tco2 21.6 mmol/l; allen test NO SATISFACTORY; mode MECHANI VENTILATOR; o2 40 %; puncture site RADIAL RIGHT
[2024-11-18] MEDS ORDERED: DIPHENHYDRAMINE HCL 50 MG/ML VIAL 1ML IV NR (10:00)
[2024-11-18] MEDS ORDERED: METHYLPREDNISOLONE SOD SUCC 40 MG VIAL IV NR (10:00)
[2024-11-18] MEDS ORDERED: DEXTROSE 5%-WATER 250ML IV.SOLN ONE (14:12)
[2024-11-18] MEDS ORDERED: METHYLPREDNISOLONE SOD SUCC 40 MG VIAL ONE (16:24)
[2024-11-18] MEDS ORDERED: DIPHENHYDRAMINE HCL 50 MG/ML VIAL 1ML ONE (16:24)
[2024-11-18] MEDS ORDERED: AMINO ACIDS 4.25%/DEXTROSE 10% 1,000 ML CENTRAL SCH (17:00)
[2024-11-18] MEDS ORDERED: AMINO ACIDS 4.25 %/DEXTROSE 5% 1,000 ML PERIFERAL SCH (17:00)
[2024-11-18] MEDS ORDERED: ALBUMIN HUMAN 100 ML VIAL IV SCH (18:00)
[2024-11-18] MEDS ORDERED: HEPARIN SODIUM,PORCINE 5,000 UNITS/ML VIAL ONE (19:17)
[2024-11-18] MEDS ORDERED: MIDAZOLAM HCL 100 MG in 0.9 % SODIUM CHLORIDE 100 ML IV SCH (23:15)
[2024-11-19] VITALS (20 sets, daily range): BP systolic 135–166; BP diastolic 54–93; O2SAT 98–100
[2024-11-19 01:54] LABS: BASO % 0.2 % (0.1-1.2); HEMATOCRIT 29.7 % (34.1-44.9); HEMOGLOBIN 9.8 g/dL (11.2-15.7); LYMPH # 0.36 (1.18-3.74); LYMPH % 3.3 % (19.3-53.1); MEAN CORPUSCULAR HEMOGLOBIN 28.9 pg (25.6-32.2); MONO # 0.41 (0.24-0.82); MONO % 3.7 % (4.7-12.5); NEUT # 8.56 (1.56-6.13); NEUT % 78.3 % (34.0-71.1); RED BLOOD COUNT 3.39 M/uL (3.93-5.22); RED CELL DISTRIBUTION WIDTH 17.2 % (11.6-14.4)
[2024-11-19 01:59] LABS: PLATELET COUNT 98 K/uL (163-369)
[2024-11-19 02:16] LABS: ALBUMIN 2.5 gm/dL (3.4-5.0); BILIRUBIN TOTAL 4.14 mg/dL (0.3-1.2); CALCIUM 9.3 mg/dL (8.5-10.1); CREATININE SERUM 1.51 mg/dL (0.55-1.02); GFR 34.07; GLOBULINA 2.9 G/DL (2.4-3.5); MAGNESIUM 2.2 mg/dL (1.8-2.4); POTASSIUM 4.9 mEq/L (3.5-5.1); TOTAL PROTEIN 5.4 gm/dL (6.4-8.2)
[2024-11-19] MEDS ORDERED: FLUCONAZOLE IN NACL,ISO-OSM 100 ML IV SCH (09:00)
[2024-11-19] MEDS ORDERED: ENOXAPARIN SODIUM 40 MG/0.4 ML SYRINGE SUBCUTANEO SCH (09:00)
[2024-11-19 09:16] LABS: ABG PH 7.325 (7.35-7.45); ABG PO2 174.6 mmHg (80-100); ABG pCO2 34.5 mmHg (35-45); BASE EXCESS -7.4 mmol/l; BICARBONATE 17.6 mmol/l (23-25); SaO2 99.4 %; Tco2 18.6 mmol/l
[2024-11-19 11:42] LABS: allen test SATISFACTORY; mode MECHANI VENTILATOR; o2 40 %; puncture site RADIAL RIGHT
[2024-11-19] MEDS ORDERED: ALBUMIN HUMAN 100 ML VIAL IV SCH (17:00)
[2024-11-19] MEDS ORDERED: HEPARIN SODIUM,PORCINE 5,000 UNITS/ML VIAL ONE (18:09)
[2024-11-19] MEDS ORDERED: HEPARIN SODIUM,PORCINE 5,000 UNITS/ML VIAL IJ ONE (18:45)
[2024-11-20] VITALS (14 sets, daily range): BP systolic 126–161; BP diastolic 52–67; O2SAT 98–100
[2024-11-20 09:14] LABS: ABG PH 7.373 (7.35-7.45); ABG PO2 153.2 mmHg (80-100); ABG pCO2 31.2 mmHg (35-45); BASE EXCESS -6.2 mmol/l; BICARBONATE 17.7 mmol/l (23-25); SaO2 99.2 %; Tco2 18.7 mmol/l
[2024-11-20 10:11] LABS: allen test NO SATISFACTORY; mode MECHANI VENTILATOR; o2 40 %; puncture site RADIAL RIGHT
[2024-11-21] VITALS (11 sets, daily range): BP systolic 127–167; BP diastolic 44–57; O2SAT 97–99
[2024-11-21 08:46] LABS: BASO % 0.1 % (0.1-1.2); EOS # 0.04 (0.04-0.54); EOS % 0.2 % (0.7-7.0); HEMATOCRIT 35.3 % (34.1-44.9); HEMOGLOBIN 11.9 g/dL (11.2-15.7); LYMPH % 2.5 % (19.3-53.1); MEAN CORPUSCULAR HEMOGLOBIN 28.7 pg (25.6-32.2); MONO # 0.22 (0.24-0.82); MONO % 1.4 % (4.7-12.5); NEUT % 88.4 % (34.0-71.1); RED BLOOD COUNT 4.15 M/uL (3.93-5.22); RED CELL DISTRIBUTION WIDTH 16.8 % (11.6-14.4)
[2024-11-21 09:26] LABS: ALBUMIN 1.9 gm/dL (3.4-5.0); ALKALINE PHOSPHATASE 379 U/L (50-136); ALT/SGPT 21 U/L (12-78); ANION GAP 22 (10.0-20.0); AST/SGOT 76 U/L (15-37); BILIRUBIN TOTAL 3.17 mg/dL (0.3-1.2); BILIRUBIN,CONJUGATED 2.05 mg/dL (0.0-0.2); BILIRUBIN,UNCONJUGATED 1.12 mg/dL (0.0-0.6); CALCIUM 8.5 mg/dL (8.5-10.1); CARBON DIOXIDE 16 mEq/L (21-32); CHLORIDE 95 mmol/L (98-107); CHOL HDL RATIO 6.9 (0-5.0); CHOLESTEROL 62 mg/dL (0-200); CREATININE SERUM 1.62 mg/dL (0.55-1.02); GFR 31.41; GLOBULINA 2.8 G/DL (2.4-3.5); GLUCOSE FASTING 89 mg/dL (65-100); PHOSPHOROUS 5.3 mg/dL (2.5-4.9); POTASSIUM 4.36 mEq/L (3.5-5.1); SODIUM 129 mmol/L (136-145); TOTAL PROTEIN 4.7 gm/dL (6.4-8.2)
[2024-11-21 09:30] LABS: BLOOD UREA NITROGEN 88 mg/dL (7-18); BUN CREA RATIO 54 (7.0-25.0); HDL 9 mg/dl (40-60); OSMOLALITY SERUM 285 MOSM/KG (275-295); TRIGLYCERIDES 320 mg/dL (0-150); VLDL 64 (0-39)
[2024-11-21 09:31] LABS: PLATELET COUNT 63 K/uL (163-369)
[2024-11-21 10:56] LABS: UREA CLEARANCE 1.1 ML/MIN
[2024-11-21] MEDS ORDERED: OCTREOTIDE ACETATE 1,250 MCG in 0.9 % SODIUM CHLORIDE 250 ML IV SCH (11:15)
[2024-11-21 15:36] LABS: INR 1.04; PROTHROMBIN TIME 11.3 SECONDS (9.0-11.5)
[2024-11-21 15:43] LABS: PARTIAL THROMBOPLASTIN TIME 40.2 SECONDS (22.0-34.0)
[2024-11-21 17:06] LABS: ABG PH 7.308 (7.35-7.45); ABG PO2 147.2 mmHg (80-100); ABG pCO2 30.6 mmHg (35-45); BASE EXCESS -9.9 mmol/l; SaO2 98.9 %; Tco2 15.9 mmol/l; allen test SATISFACTORY; mode MECHANI VENTILATOR; o2 40 %; puncture site RADIAL RIGHT
[2024-11-22] VITALS (13 sets, daily range): BP systolic 91–160; BP diastolic 45–57; O2SAT 98–100
[2024-11-22] MEDS ORDERED: LevETIRAcetam 5 MG/1 ML REDILUIDO IV SCH (09:00)
[2024-11-22 09:20] LABS: ABG PH 7.211 (7.35-7.45); ABG PO2 168.3 mmHg (80-100); ABG pCO2 32.8 mmHg (35-45); BASE EXCESS -13.8 mmol/l; BICARBONATE 12.9 mmol/l (23-25); SaO2 98.9 %; Tco2 13.9 mmol/l
[2024-11-22 15:26] LABS: allen test SATISFACTORY; mode MECHANI VENTILATOR; o2 40 %; puncture site RADIAL RIGHT
[2024-11-22] MEDS ORDERED: NOREPINEPHRINE BITARTRATE 1 MG/ML AMPUL IV ONE (18:50)
[2024-11-22] MEDS ORDERED: NOREPINEPHRINE BITARTRATE 8 MG in DEXTROSE 5 % IN WATER 250 ML IV SCH (19:30)
[2024-11-22] MEDS ORDERED: HEPARIN SODIUM,PORCINE 5,000 UNITS/ML VIAL ONE (20:16)
[2024-11-22 20:54] LABS: BASO % 0.2 % (0.1-1.2); EOS # 0.05 (0.04-0.54); EOS % 0.4 % (0.7-7.0); HEMATOCRIT 30.4 % (34.1-44.9); HEMOGLOBIN 10.4 g/dL (11.2-15.7); LYMPH # 0.14 (1.18-3.74); LYMPH % 1.1 % (19.3-53.1); MEAN CORPUSCULAR HEMOGLOBIN 28.6 pg (25.6-32.2); MONO # 0.14 (0.24-0.82); MONO % 1.1 % (4.7-12.5); NEUT # 11.69 (1.56-6.13); NEUT % 94.1 % (34.0-71.1); RED BLOOD COUNT 3.64 M/uL (3.93-5.22); RED CELL DISTRIBUTION WIDTH 16.4 % (11.6-14.4)
[2024-11-22] MEDS ORDERED: LevETIRAcetam 500 MG/5 ML VIAL IV SCH (21:00)
[2024-11-22 21:22] LABS: ALBUMIN 2.4 gm/dL (3.4-5.0); BILIRUBIN TOTAL 3.9 mg/dL (0.3-1.2); CALCIUM 8.8 mg/dL (8.5-10.1); GFR 54.81; GLOBULINA 3.7 G/DL (2.4-3.5); MAGNESIUM 1.7 mg/dL (1.8-2.4); PHOSPHOROUS 3.1 mg/dL (2.5-4.9); POTASSIUM 3.05 mEq/L (3.5-5.1); TOTAL PROTEIN 6.1 gm/dL (6.4-8.2)
[2024-11-22 21:24] LABS: PLATELET COUNT 34 K/uL (163-369)
[2024-11-22 21:27] LABS: INR 1.05; PARTIAL THROMBOPLASTIN TIME 37.1 SECONDS (22.0-34.0); PROTHROMBIN TIME 11.4 SECONDS (9.0-11.5)
[2024-11-23] VITALS (19 sets, daily range): BP systolic 84–143; BP diastolic 36–58; O2SAT 97–100
[2024-11-23 07:42] LABS: BASO % 0.2 % (0.1-1.2); EOS % 0.8 % (0.7-7.0); LYMPH # 0.31 (1.18-3.74); LYMPH % 2.6 % (19.3-53.1); MEAN CORPUSCULAR HEMOGLOBIN 30.7 pg (25.6-32.2); MONO # 0.16 (0.24-0.82); MONO % 1.4 % (4.7-12.5); NEUT # 10.93 (1.56-6.13); NEUT % 92.5 % (34.0-71.1); RED CELL DISTRIBUTION WIDTH 16.9 % (11.6-14.4)
[2024-11-23 08:36] LABS: HEMATOCRIT 25.2 % (34.1-44.9)
[2024-11-23 08:38] LABS: HEMOGLOBIN 9.2 g/dL (11.2-15.7); PLATELET COUNT 28 K/uL (163-369)
[2024-11-23 09:04] LABS: ABG PH 7.265 (7.35-7.45); ABG pCO2 31.3 mmHg (35-45); BASE EXCESS -11.7 mmol/l; BICARBONATE 13.9 mmol/l (23-25); SaO2 99.4 %; Tco2 14.8 mmol/l
[2024-11-23] MEDS ORDERED: AMPICILLIN SODIUM/SULBACTAM NA 3,000 MG VIAL IV SCH (09:23)
[2024-11-23] MEDS ORDERED: NOREPINEPHRINE BITARTRATE 1 MG/ML AMPUL IV ONE (10:45)
[2024-11-23] MEDS ORDERED: NOREPINEPHRINE BITARTRATE 4 MG in DEXTROSE 5 % IN WATER 250 ML IV SCH (11:00)
[2024-11-23] MEDS ORDERED: CEFIDEROCOL SULFATE TOSYLATE 1 GM VIAL IV SCH ×2 (12:00→17:00)
[2024-11-24] VITALS (20 sets, daily range): BP systolic 77–154; BP diastolic 34–61; O2SAT 98–100
[2024-11-24 06:56] LABS: ALBUMIN 1.4 gm/dL (3.4-5.0); BILIRUBIN TOTAL 4.45 mg/dL (0.3-1.2); CALCIUM 8.1 mg/dL (8.5-10.1); CREATININE SERUM 1.55 mg/dL (0.55-1.02); GFR 33.05; POTASSIUM 3.6 mEq/L (3.5-5.1)
[2024-11-24 07:20] LABS: GLOBULINA 2.7 G/DL (2.4-3.5); TOTAL PROTEIN 4.1 gm/dL (6.4-8.2)
[2024-11-24] MEDS ORDERED: MINERAL OIL/HYDROPHIL PETROLAT 50 GM OINT..GM. TOP SCH (09:00)
[2024-11-24 09:09] LABS: ABG PO2 130.9 mmHg (80-100); ABG pCO2 32.4 mmHg (35-45); BASE EXCESS -14.8 mmol/l; BICARBONATE 12.1 mmol/l (23-25); SaO2 97.7 %; Tco2 13.1 mmol/l
[2024-11-24] MEDS ORDERED: METHYLPREDNISOLONE SOD SUCC 40 MG VIAL IV NR (10:45)
[2024-11-24] MEDS ORDERED: SODIUM BICARBONATE 150 MEQ in DEXTROSE 5 % IN WATER 1,000 ML IV SCH ×2 (10:45→11:15)
[2024-11-24] MEDS ORDERED: DIPHENHYDRAMINE HCL 50 MG/ML VIAL 1ML IV NR (10:45)
[2024-11-24] MEDS ORDERED: SODIUM BICARBONATE 50MEQ/50ML VIAL IV ONE (10:48)
[2024-11-24] MEDS ORDERED: PHENYLEPHRINE HCL 10 MG/ML AMPUL ONE ×2 (12:52→17:55)
[2024-11-24] MEDS ORDERED: PHENYLEPHRINE HCL 20 MG in 0.9 % SODIUM CHLORIDE 250 ML IV SCH (13:00)
[2024-11-24 15:51] LABS: ABG PH 7.191 (7.35-7.45); o2 35 %
[2024-11-24 15:52] LABS: allen test SATISFACTORY; mode MECHANI VENTILATOR; puncture site RADIAL LEFT
[2024-11-24] MEDS ORDERED: HEPARIN SODIUM,PORCINE 5,000 UNITS/ML VIAL ONE (17:32)
[2024-11-24] MEDS ORDERED: DEXTROSE 5% IV SCH (18:15)
[2024-11-24] MEDS ORDERED: PHENYLEPHRINE HCL 80 MG in 0.9 % SODIUM CHLORIDE 1,000 ML IV SCH (18:15)
[2024-11-24] MEDS ORDERED: WATER IV SCH (18:15)
[2024-11-24] MEDS ORDERED: NOREPINEPHRINE BITARTRATE IV SCH (18:15)
[2024-11-25 00:48] VITALS: BP 74/49
[2024-11-25 02:00] VITALS: BP 51/35; O2SAT 100
[2024-11-25 07:17] VITALS: BP 126/55; O2SAT 100
== END 2024-11-25 02:29 | disposition expired | DRG 840 ==
LOC: SURH 07:25 → ICU 07:25 → O/R 11-16 12:36 → ICU 11-16 12:41
PROVIDERS: Internal Medicine; Internal Medicine Nephrology; ADMIT Internal Medicine Hematology & Oncology; ATTEND Internal Medicine Hematology & Oncology
PROC: 30233N1 Transfusion of Nonautologous Red Blood Cells into Peripheral Vein, Percutaneous Approach (ICD-10-PCS; principal; 2024-10-28)
PROC: 4A12X4Z Monitoring of Cardiac Electrical Activity, External Approach (ICD-10-PCS; 2024-10-28)
PROC: B246ZZZ Ultrasonography of Right and Left Heart (ICD-10-PCS; 2024-11-03)
PROC: B52SYZZ Computerized Tomography (CT Scan) of Bilateral Pulmonary Veins using Other Contrast (ICD-10-PCS; 2024-11-03)
PROC: 0W9J30Z Drainage of Pelvic Cavity with Drainage Device, Percutaneous Approach (ICD-10-PCS; 2024-11-04)
PROC: BW21YZZ Computerized Tomography (CT Scan) of Abdomen and Pelvis using Other Contrast (ICD-10-PCS; 2024-11-04)
PROC: 0BH17EZ Insertion of Endotracheal Airway into Trachea, Via Natural or Artificial Opening (ICD-10-PCS; 2024-11-05)
PROC: 5A1955Z Respiratory Ventilation, Greater than 96 Consecutive Hours (ICD-10-PCS; 2024-11-05)
PROC: B020ZZZ Computerized Tomography (CT Scan) of Brain (ICD-10-PCS; 2024-11-05)
PROC: 30233M1 Transfusion of Nonautologous Plasma Cryoprecipitate into Peripheral Vein, Percutaneous Approach (ICD-10-PCS; 2024-11-06)
PROC: 02HV33Z Insertion of Infusion Device into Superior Vena Cava, Percutaneous Approach (ICD-10-PCS; 2024-11-07)
PROC: B548ZZA Ultrasonography of Superior Vena Cava, Guidance (ICD-10-PCS; 2024-11-07)
PROC: 3E0436Z Introduction of Nutritional Substance into Central Vein, Percutaneous Approach (ICD-10-PCS; 2024-11-07)
PROC: BW21YZZ Computerized Tomography (CT Scan) of Abdomen and Pelvis using Other Contrast (ICD-10-PCS; 2024-11-11)
PROC: BW21ZZZ Computerized Tomography (CT Scan) of Abdomen and Pelvis (ICD-10-PCS; 2024-11-15)
PROC: 8E0ZXY6 Isolation (ICD-10-PCS; 2024-11-17)
PROC: 06HY33Z Insertion of Infusion Device into Lower Vein, Percutaneous Approach (ICD-10-PCS; 2024-11-17)
PROC: 5A1D70Z Performance of Urinary Filtration, Intermittent, Less than 6 Hours Per Day (ICD-10-PCS; 2024-11-17)
PROC: 5A1D70Z Performance of Urinary Filtration, Intermittent, Less than 6 Hours Per Day (ICD-10-PCS; 2024-11-18)
PROC: 5A1D70Z Performance of Urinary Filtration, Intermittent, Less than 6 Hours Per Day (ICD-10-PCS; 2024-11-19)
PROC: 5A1D70Z Performance of Urinary Filtration, Intermittent, Less than 6 Hours Per Day (ICD-10-PCS; 2024-11-22)
PROC: BT43ZZZ Ultrasonography of Bilateral Kidneys (ICD-10-PCS; 2024-11-23)
PROC: B54NZZZ Ultrasonography of Left Upper Extremity Veins (ICD-10-PCS; 2024-11-23)
PROC: 05HQ33Z Insertion of Infusion Device into Left External Jugular Vein, Percutaneous Approach (ICD-10-PCS; 2024-11-23)
PROC: 5A1D70Z Performance of Urinary Filtration, Intermittent, Less than 6 Hours Per Day (ICD-10-PCS; 2024-11-24)
DX: C90.00 Multiple myeloma not having achieved remission (principal); A41.51 Sepsis due to Escherichia coli [E. coli]; K63.1 Perforation of intestine (nontraumatic); B37.7 Candidal sepsis; A41.59 Other Gram-negative sepsis; K65.1 Peritoneal abscess; R65.21 Severe sepsis with septic shock; D65 Disseminated intravascular coagulation [defibrination syndrome]; I26.99 Other pulmonary embolism without acute cor pulmonale; J96.00 Acute respiratory failure, unspecified whether with hypoxia or hypercapnia; G92.8 Other toxic encephalopathy; N17.0 Acute kidney failure with tubular necrosis; J18.9 Pneumonia, unspecified organism; R18.8 Other ascites; K52.1 Toxic gastroenteritis and colitis; K92.2 Gastrointestinal hemorrhage, unspecified; N17.9 Acute kidney failure, unspecified; D84.89 Other immunodeficiencies; G40.501 Epileptic seizures related to external causes, not intractable, with status epilepticus; E87.29 Other acidosis; J90 Pleural effusion, not elsewhere classified; D50.0 Iron deficiency anemia secondary to blood loss (chronic); I46.9 Cardiac arrest, cause unspecified; E16.2 Hypoglycemia, unspecified; D63.0 Anemia in neoplastic disease; E87.6 Hypokalemia; R22.32 Localized swelling, mass and lump, left upper limb; R00.0 Tachycardia, unspecified; Z66 Do not resuscitate; Z99.2 Dependence on renal dialysis
CPT/HCPCS: 240; 71275